=== PATIENT | male | born 1970 | race Caucasian/White ===

== ENCOUNTER 2022-07-23 17:19 | Emergency (ER) | payer BC, SELFPAY ==
[2022-07-23 18:00] VITALS: BP 176/113; PULSE 107; RESP 22; TEMP 37; O2SAT 98; BMI 26.6
--- NOTE | 2022-07-23 18:29 | EXP.UTC ---
Discharge Plan Disposition Patient Disposition: Home, Self-Care Condition: Good Prescriptions Prescriptions: New sulfamethoxazole-trimethoprim 800-160 mg tablet 1 tab PO DAILY 14 Days Qty: 14 0RF Referrals Follow up/Referrals: Provider,Referral, [Primary Care Provider] - See instructions Activity Restrictions/Add. Instructions Additional Instructions/Restrictions: You were evaluated in the emergency department today. 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 Follow-up with your primary care provider over the next 48 hours for a wound check and reassessment. Return to the emergency department for any new or worsening symptoms, such as fevers, chills, intractable nausea and vomiting, worsening redness, warmth, or other concerns. Clinical Impressions Clinical Impression: Cellulitis and abscess of right leg Instructions Patient Instructions: DI for Cellulitis -- Adult, DI for Incision and Drainage of a Skin Abscess Discharge ED Provider: Kamille Bennett [facility] [place] HPI General Chief complaint: Wound/Laceration Stated complaint: AO 07/21 spider bite R Knee Mode of Arrival: Ambulatory Source of Information: Patient Limitations: No Limitations Time Seen by Provider: 07/23/22 18:29 Description of Symptoms (Recalled from Triage Doc. by RN): PATIENT C/O POSSIBLE SPIDER BITE TO RIGHT KNEE THAT HE NOTICED 2 DAYS AGO. REDNESS, SWELLING AND WARMTH NOTED TO AREA AROUND WOUND AND SWELLING ALSO NOTED TO LOWER LEG AND FOOT. PATIENT REPORTS WOUND HAS BEEN DRAINING. DENIES ANY KNOWN FEVER HEENT Symptoms (Recalled from RN notes): No Resp Symptoms (Recalled from RN notes): No Skin Symptoms (Recalled from RN notes): Yes MS Symptoms (Recalled from RN notes): No Functional Status (Recalled from RN notes): WNL History of Present Illness Provider Complaint: Pt states that he has had swelling and purulent drainage out a possible spider bite site for 2 days. Pt states that he has had a lot of pus come out of the site. He reports that he has had to have his foot propped up due to the swelling in his legs. Related Data Previous Rx's Medication Instructions Recorded sulfamethoxazole 800 1 tab PO DAILY 14 days #14 tabs 07/23/22 mg-trimethoprim 160 mg tablet Allergies Allergy/AdvReac Type Severity Reaction Status Date / Time No Known Allergies Allergy Verified 07/23/22 18:25 Worker's Comp Is this a Worker's Comp case?: No [facility] Disclaimer: The information contained in this section may have been updated after the patient was seen, as this information can be updated by other users. Social History (Updated 07/23/22 @ 19:58 by Kamille Bennett DO) Smoking Status: Current every day smoker alcohol intake: never current occupational status: employed Travel in the last 8 weeks: None ROS Obtained: Yes All systems reviewed & no additional complaints except as documented Constitutional Constitutional: Reports system reviewed and no additional complaints, except as documented Eyes Eyes: Reports system reviewed and no additional complaints, except as documented ENT Ears, Nose, Mouth, and Throat: Reports system reviewed and no additional complaints, except as documented Cardiovascular Cardiovascular: Reports system reviewed and no additional complaints, except as documented Respiratory Respiratory: Reports system reviewed and no additional complaints, except as documented Gastrointestinal Gastrointestingal: Reports system reviewed and no additional complaints, except as documented Genitourinary Male Genitourinary: Reports system reviewed and no additional complaints, except as documented Musculoskeletal Musculoskeletal: Reports as per HPI, Reports abnormal gait, Reports arthralgias and Reports joint swelling Integumentary/Breasts Skin/Breast: Reports as per HPI and Reports sores Neurologic Neurologic: Reports system reviewed and no additional complaints, except as documented
--- NOTE | 2022-07-23 18:51 | HMH.EDGENADL ---
Discharge Plan Disposition Patient Disposition: Home, Self-Care Condition: Good Prescriptions Prescriptions: New sulfamethoxazole-trimethoprim 800-160 mg tablet 1 tab PO DAILY 14 Days Qty: 14 0RF Referrals Follow up/Referrals: Provider,Referral, [Primary Care Provider] - See instructions Activity Restrictions/Add. Instructions Additional Instructions/Restrictions: You were evaluated in the emergency department today. 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 Follow-up with your primary care provider over the next 48 hours for a wound check and reassessment. Return to the emergency department for any new or worsening symptoms, such as fevers, chills, intractable nausea and vomiting, worsening redness, warmth, or other concerns. Clinical Impressions Clinical Impression: Cellulitis and abscess of right leg Instructions Patient Instructions: DI for Cellulitis -- Adult, DI for Incision and Drainage of a Skin Abscess Discharge ED Provider: Kamille Bennett General Adult HPI General Chief complaint: Wound/Laceration Stated complaint: AO 07/21 spider bite R Knee Time Seen by Provider: 07/23/22 18:29 Mode of Arrival: Ambulatory Source of Information: Patient Limitations: No Limitations Description of Symptoms (Recalled from ER Triage Doc. by RN): PATIENT C/O POSSIBLE SPIDER BITE TO RIGHT KNEE THAT HE NOTICED 2 DAYS AGO. REDNESS, SWELLING AND WARMTH NOTED TO AREA AROUND WOUND AND SWELLING ALSO NOTED TO LOWER LEG AND FOOT. PATIENT REPORTS WOUND HAS BEEN DRAINING. DENIES ANY KNOWN FEVER History of Present Illness HPI narrative: This patient is a 52-year-old male with a history of psoriasis who is not on treatment presenting presenting to the emergency department for evaluation with concern for a possible spider bite to his right leg. He states that he had been spraying for insects all around his house with friend that he got at [employer]. He states that he was using it as directed. He was fine when he went to bed 3 nights ago, however he woke up with a wound to his right leg on the lateral aspect of his knee and significant swelling of his right lower extremity. He presumes that a spider bit him in his sleep. He also states that he has had redness, warmth, and pain. The pain is not severe, and he states that he is able to walk without difficulty. He has full range of motion of his knee and ankle without issue. States that he has been using plain soap and water and Neosporin at home for care. He denies any history of blood clots or clotting disorders. He also denies any history of MRSA or IV drug use. He denies any fevers, chills, chest pain, shortness of breath, abdominal pain, nausea, vomiting, or other systemic symptoms. Related Data Previous Rx's Medication Instructions Recorded sulfamethoxazole 800 1 tab PO DAILY 14 days #14 tabs 07/23/22 mg-trimethoprim 160 mg tablet Allergies Allergy/AdvReac Type Severity Reaction Status Date / Time No Known Allergies Allergy Verified 07/23/22 18:25 [facility] Disclaimer: The information contained in this section may have been updated after the patient was seen, as this information can be updated by other users. Social History Smoking Status: Current every day smoker alcohol intake: never current occupational status: employed Travel in the last 8 weeks: None ROS Obtained: Yes All systems reviewed & no additional complaints except as documented 14 point review of systems obtained and negative except as mentioned in HPI. Physical Exam General General appearance: alert and in no apparent distress Head Head exam: atraumatic and normocephalic Eye Eye exam: Present normal appearance, PERRL and EOMI ENT ENT exam: Present normal exam, normal oropharynx and mucous membranes moist Neck Neck exam: Present normal inspection and full ROM Chest Chest in
[2022-07-23 18:59] VITALS: BP 173/88; PULSE 87; RESP 17; TEMP 37; O2SAT 98; BMI 28.1
[2022-07-23 18:59] LABS: Basophils # 0.1 K/mm3 (0-0.2); Basophils % 0.6 % (0.1-2.0); Eosinophils # 0.6 K/mm3 (0.0-0.4); Eosinophils % 5.2 % (0.1-12.0); Hematocrit 44.7 % (42.0-52.0); Hemoglobin 14.7 g/dL (14.1-18.0); Lymphocytes # 3.2 K/mm3 (0.7-4.5); Lymphocytes % 26.2 % (10-50); Mean Corpuscular Hemoglobin 28.4 pg (27.0-31.2); Mean Corpuscular Volume 86.2 fl (80-94); Mean Platelet Volume 7.5 fl (7.4-10.4); Monocytes # 0.6 K/mm3 (0.1-1.0); Monocytes % 4.6 % (1.7-9.3); Neutrophils # 7.8 K/mm3 (1.8-7.8); Neutrophils % 63.4 % (37.0-80.0); Platelet Count 441 K/mm3 (142-424); Red Blood Count 5.18 M/mm3 (4.60-6.20); Red Cell Distribution Width 13.1 % (11.5-17.5); White Blood Count 12.3 K/mm3 (4.8-10.8)
[2022-07-23 19:09] LABS: Alanine Aminotransferase 43 U/L (12-78); Albumin Level 4.5 g/dl (3.5-5.0); Albumin/Globulin Ratio 1.4 (1.1-1.8); Alkaline Phosphatase 113 U/L (38-126); Anion Gap 9.3 mEq/L (5-15); Aspartate Amino Transferase 34 U/L (17-59); Bilirubin,Total 0.6 mg/dl (0.2-1.3); Blood Urea Nitrogen 15 mg/dl (9-20); Calcium 9.2 mg/dl (8.4-10.2); Carbon Dioxide 29 mmol/L (22.0-30.0); Chloride 102 mmol/L (98-107); Creatinine Clearance Estimated 128 mL/min (50-200); Estimated Glomerular Filt Rate 102 ml/min (>60); GFR (African American) 124 ML/MIN (>60); Globulin 3.3 g/dL (1.3-3.2); Glucose 92 mg/dl (74-100); Potassium 3.3 mmoL/L (3.5-5.1); Sodium 137 mmol/L (136-145); Total Protein,Serum 7.8 g/dl (6.3-8.2)
[2022-07-23 19:12] LABS: INR 0.92 (0.9-1.1)
[2022-07-23 19:15] LABS: C-Reactive Protein 61.3 mg/L (0-4)
[2022-07-23 19:33] LABS: Erythrocyte Sedimentation Rate 23 mm/hr (0-15)
[2022-07-23 19:56] LABS: Lactic Acid 0.9 mmol/L (0.7-2.1)
[2022-07-23 20:01] VITALS: BP 165/78; PULSE 80; RESP 18; TEMP 36.6; O2SAT 99
== END 2022-07-23 20:04 | disposition home or self-care (01) ==
LOC: UTC 17:28 → ER 18:35
PROVIDERS: Emergency Provider Emergency Medicine
DX: L03.115 Cellulitis of right lower limb (principal)
CPT/HCPCS: 80053; 83605; 85025; 85610; 85651; 86140; 87040; 87070; 87077; 87186; 87205; 99284; 99285